=== PATIENT | female | born 1950 | race Hispanic/Latino ===

== ENCOUNTER 2017-06-29 07:46 | Day surgery (SDC) | payer MEDICARE ==
[2017-06-29 08:36] VITALS: BMI 40.4
[2017-06-29] MEDS ORDERED: Propofol 10 mg/ml Inj (20 ML) ONE ×2 (10:15→10:36)
[2017-06-29] MEDS ORDERED: Sodium Chloride 0.9% 1,000 ML IV SCH (11:00)
[2017-06-29 12:04] VITALS: BP 133/74; PULSE 67; RESP 16; TEMP 97.6; O2SAT 97
== END 2017-06-29 12:53 | disposition home or self-care (01) ==
LOC: ENDO 07:46
PROVIDERS: ATTEND Internal Medicine Gastroenterology
DX: K55.20 Angiodysplasia of colon without hemorrhage (principal); K22.70 Barrett's esophagus without dysplasia; D50.9 Iron deficiency anemia, unspecified
CPT/HCPCS: 44369; J1642; J2704; J7040 ×2

== ENCOUNTER 2018-05-07 07:51 | Day surgery (SDC) | payer MEDICARE ==
[2018-05-07] MEDS ORDERED: Propofol 10 mg/ml Inj (20 ML) ONE ×2 (10:06→11:25)
[2018-05-07] MEDS ORDERED: Sodium Chloride 0.9% 1,000 ML IV SCH (12:00)
[2018-05-07 13:08] VITALS: RESP 18; TEMP 98.4
[2018-05-07 13:10] VITALS: BP 119/64; PULSE 75; O2SAT 98
== END 2018-05-07 13:25 | disposition home or self-care (01) ==
LOC: ENDO 07:51
PROVIDERS: ATTEND Internal Medicine Gastroenterology
DX: K25.9 Gastric ulcer, unspecified as acute or chronic, without hemorrhage or perforation (principal); K21.9 Gastro-esophageal reflux disease without esophagitis; K29.50 Unspecified chronic gastritis without bleeding; K63.89 Other specified diseases of intestine; I10 Essential (primary) hypertension; E78.5 Hyperlipidemia, unspecified; D50.9 Iron deficiency anemia, unspecified; E66.9 Obesity, unspecified; Z85.3 Personal history of malignant neoplasm of breast; Z68.41 Body mass index [BMI] 40.0-44.9, adult
CPT/HCPCS: 43239; 43270; 88305; 88342; J2704; J3010; J7030; J7040

== ENCOUNTER 2018-07-29 07:53 | Day surgery (SDC) | payer MEDICARE ==
[2018-07-29] MEDS ORDERED: Propofol 10 mg/ml Inj (20 ML) ONE (09:54)
[2018-07-29] MEDS ORDERED: Sodium Chloride 0.9% 1,000 ML IV SCH (11:00)
[2018-07-29 12:26] VITALS: BMI 40.4
[2018-07-29 12:33] VITALS: BP 118/71; PULSE 67; RESP 18; TEMP 98; O2SAT 96
== END 2018-07-29 12:44 | disposition home or self-care (01) ==
LOC: ENDO 07:53
PROVIDERS: ATTEND Internal Medicine Gastroenterology
DX: D50.9 Iron deficiency anemia, unspecified (principal); K31.819 Angiodysplasia of stomach and duodenum without bleeding; K25.9 Gastric ulcer, unspecified as acute or chronic, without hemorrhage or perforation; Z85.3 Personal history of malignant neoplasm of breast; Z85.850 Personal history of malignant neoplasm of thyroid; E78.00 Pure hypercholesterolemia, unspecified; I10 Essential (primary) hypertension; K21.9 Gastro-esophageal reflux disease without esophagitis; Z98.49 Cataract extraction status, unspecified eye; Z96.641 Presence of right artificial hip joint; Z96.653 Presence of artificial knee joint, bilateral; Z90.710 Acquired absence of both cervix and uterus; Z90.13 Acquired absence of bilateral breasts and nipples; E89.0 Postprocedural hypothyroidism
CPT/HCPCS: 43235; 88305; 88312; J2704; J3010; J7030

== ENCOUNTER 2018-09-18 11:17 | Outpatient (CLI) | payer MEDICARE | END 2018-09-18 11:18 | disposition home or self-care (01) | LOC: OPLAB 11:17 ==